=== PATIENT | male | born 1940 | race Caucasian/White ===

== ENCOUNTER 2023-03-24 06:40 | Emergency (ER) | payer MEDICARE ==
[2023-03-24] MEDS ORDERED: NORCO 5/325 MG PO ONE (07:19)
[2023-03-24] MEDS ORDERED: Adacel Vial IM ONE ×2 (07:21→07:22)
[2023-03-24] MEDS ORDERED: NORCO 5/325 MG ONE (07:21)
--- NOTE | 2023-03-24 07:22 | ERPHSYRPT ---
- History of Present Illness Time Seen by Provider: 03/24/23 06:58 Source: patient Exam Limitations: no limitations Patient Subjective Stated Complaint: pt states "I was unloading an uhaul and missed the last 2 steps and fell." Triage Nursing Assessment: pt ambulatory with slow steady gait to cot, pt alert and oriented x3, skin pwd, pt c/o bilateral knee pain and L hand pain, abrasions noted to L knee, swelling to L hand noted, +2 radial pulses, cap refill less than 2 secs, pt denies blood thinners Physician History: Patient here with left wrist, bilateral knee pain. 2 days ago patient had a mechanical fall. States that he was stepping out of a [employer]-Haul and fell down 2 steps. Patient has had continued left wrist pain. He is unsure of his last tetanus shot. Bilateral knee abrasions. He did not hit his head. No other trauma. He denies being on any blood thinners. Allergies/Adverse Reactions: No Known Drug Allergies Allergy (Verified 03/24/23 06:47) Home Medications: Atorvastatin Calcium [Lipitor] 10 mg PO DAILY 03/24/23 [History] Baclofen 20 mg PO DAILY 03/24/23 [History] Omeprazole 20 mg PO DAILY 03/24/23 [History] lisinopriL [Lisinopril] 10 mg PO DAILY 03/24/23 [History] Hx Tetanus, Diphtheria Vaccination/Date Given: No Hx Influenza Vaccination/Date Given: Yes Hx Pneumococcal Vaccination/Date Given: No Immunizations Up to Date: Yes Travel Risk - International Travel Have you traveled outside of the country in past 3 weeks: No - Coronavirus Screening Are you exhibiting any of the following symptoms?: No Close contact with a COVID-19 positive Pt in past 14-21 Days: No - Vaccine Status Have you recieved a Covid-19 vaccination: Yes 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 - Vaccination Dates Dates if Unknown: unk - Review of Systems Constitutional: No Fever, No Chills Eyes: No Symptoms Ears, Nose, & Throat: No Symptoms Respiratory: No Cough, No Dyspnea Cardiac: No Chest Pain, No Edema, No Syncope Abdominal/Gastrointestinal: No Abdominal Pain, No Nausea, No Vomiting, No Diarrhea Genitourinary Symptoms: No Dysuria Musculoskeletal: Other (Wrist pain, bilateral knee pain), No Back Pain, No Neck Pain Skin: No Rash Neurological: No Dizziness, No Focal Weakness, No Sensory Changes Psychological: No Symptoms Endocrine: No Symptoms All Other Systems: Reviewed and Negative - Past Medical History Pertinent Past Medical History: Yes Neurological History: No Pertinent History ENT History: No Pertinent History Cardiac History: High Cholesterol, Hypertension Respiratory History: No Pertinent History Endocrine Medical History: No Pertinent History Musculoskeletal History: Arthritis GI Medical History: GERD History: No Pertinent History Psycho-Social History: No Pertinent History Male Reproductive Disorders: No Pertinent History - Past Surgical History Past Surgical History: Yes Neuro Surgical History: No Pertinent History Cardiac: No Pertinent History Respiratory: No Pertinent History Gastrointestinal: No Pertinent History Genitourinary: No Pertinent History Musculoskeletal: Orthopedic Surgery Male Surgical History: No Pertinent History Other Surgical History: R knee replacement - Social History Smoking Status: Never smoker Exposure to second hand smoke: No Drug Use: none Patient Lives Alone: Yes - Nursing Vital Signs Nursing Vital Signs: Initial Vital Signs Temperature 98.0 F 03/24/23 06:40 Pulse Rate 85 03/24/23 06:40 Respiratory Rate 18 03/24/23 06:40 Blood Pressure 143/75 03/24/23 06:40 O2 Sat by Pulse Oximetry 94 L 03/24/23 06:40 Pain Scale Pain Intensity 2 - Physical Exam General Appearance: no apparent distress, alert Eye Exam: PERRL/EOMI, eyes nml inspection Ears, Nose, Throat Exam: normal ENT inspection, TMs normal, pharynx normal, moist mucous membranes Neck Exam: normal inspection, non-tender, supple, full range of motion Respiratory Exam: normal breath sounds, lungs clear, No respiratory distress Cardiovascular Exam: regular rate/rhythm, normal heart sounds, normal peripheral pulses Gastrointestinal/Abdomen Exam: soft, normal bowel sounds, No tenderness, No mass Back Exam: normal inspection, normal range of motion, No CVA tenderness, No v ertebral tenderness Extremity Exam: pelvis stable, other, No normal inspection, No normal range of motion Neurologic Exam: alert, oriented x 3, cooperative, normal mood/affect, No motor deficits Skin Exam: normal color, warm, dry, No rash Lymphatic Exam: No adenopathy SpO2 Interpretation: normal SpO2: 94 Comments: 03/24/23 07:20 Patient has left wrist pain, swelling. Limited range of motion secondary to pain. 2+ pulses. Bilateral knee abrasions without obvious deformity. - Course Nursing assessment & vital signs reviewed: Yes Ordered Tests: Active Orders 24 hr Category Date Time Status KNEE (3 VIEWS) Stat Exams 03/24/23 06:59 Completed KNEE (3 VIEWS) Stat Exams 03/24/23 06:59 Completed WRIST (MIN 3 VIEWS) Stat Exams 03/24/23 06:58 Completed Medication Summary Discontinued Medications Generic Name Dose Route Start Last Admin Trade Name Chris PRN Reason Stop Dose Admin Hydrocodone Bitart/Acetaminophen 2 tab 03/24/23 07:19 03/24/23 07:23 Hydrocodone/Apap 5/325 1 Tab Tablet PO 03/24/23 07:20 2 tab STAT ONE Administration Hydrocodone Bitart/Acetaminophen Confirm 03/24/23 07:21 Hydrocodone/Apap 5/325 1 Tab Tablet Administered 03/24/23 07:22 Dose 2 tab .ROUTE .STK-MED ONE Diphtheria/Tetanus/Acell Pertussis 0.5 ml 03/24/23 07:21 03/24/23 07:23 Tdap --Diph,Pertuss(Acell),Tet Vac/Pf 0.5 Ml Vial IM 03/24/23 07:22 0.5 ml .ONCE ONE Administration Diphtheria/Tetanus/Acell Pertussis Confirm 03/24/23 07:22 Tdap --Diph,Pertuss(Acell),Tet Vac/Pf 0.5 Ml Vial Administered 03/24/23 07:23 Dose 0.5 ml IM .STK-MED ONE - Progress Progress Note: 03/24/23 07:21 We will obtain x-rays, give patient Salley for pain, will give a tetanus shot. 03/24/23 09:01 X-ray is read as negative. I did review degenerative changes without obvious fracture. Patient will need repeat x-rays or MRI in 1 week with orthopedic doctor. This is in case there is an occult scaphoid fracture or other occult fracture. Patient placed in prefabricated splint until that time. He states his understanding, and will follow up as described. Counseled pt/family regarding: diagnosis, need for follow-up, rad results Medical Desision Making - Independent Historian Additional History obtained from: Child - Diagnostic Testing Radiological Interpretation: Interpreted by me, Reviewed by me - Departure Departure Disposition: Home Clinical Impression: Left wrist sprain, Abrasion of knee, bilateral Condition: Stable Critical Care Time: No Referrals: Provider,Unknown [Primary Care Provider] - Follow up/PCP as directed Instructions: Contusion (DC), Preventing falls in adults Additional Instructions: Repeat x-ray in 1 week at Ortho clinic if pain continues. You may have an occult fracture not showing up on x-ray. Therefore, continue to wear wrist splint at home for pain and stabilization.
--- NOTE | 2023-03-24 08:41 | XRAY ---
Indication: Pain following fall. Comparison: None 3 view left knee demonstrates osteopenia, mild/moderate tricompartmental degenerative changes greatest patellofemoral compartment, and posterior fabella. No other bony, articular, or soft tissue abnormalities.
--- NOTE | 2023-03-24 08:43 | XRAY ---
Indication: Pain following fall. Comparison: None 3 view right knee demonstrates osteopenia and totally knee arthroplasty with intact prosthesis. No other bony, articular, or soft tissue abnormalities.
--- NOTE | 2023-03-24 08:45 | XRAY ---
Indication: Pain following fall. Comparison: None 3 view left wrist demonstrates osteopenia, radiocarpal degenerative joint space narrowing, faint ulnocarpal degenerative chondrocalcinosis, moderate 1st metacarpal multangular scaphoid degenerative changes, and small scaphoid bone cyst. No other bony, articular, or soft tissue abnormalities.
[2023-03-24 09:29] VITALS: BP 136/74; PULSE 76; O2SAT 96
== END 2023-03-24 09:30 | disposition home or self-care (01) ==
LOC: ED 06:40
DX: S63.502A Unspecified sprain of left wrist, initial encounter (principal); S80.212A Abrasion, left knee, initial encounter; S80.211A Abrasion, right knee, initial encounter; W10.8XXA Fall (on) (from) other stairs and steps, initial encounter; Y93.E6 Activity, residential relocation; E78.5 Hyperlipidemia, unspecified; I10 Essential (primary) hypertension; Z79.899 Other long term (current) drug therapy
CPT/HCPCS: 73110; 73562; 90471; 90715; 99283; L3908; A9270-GY